=== PATIENT | female | born 1940 | race Caucasian/White ===

== ENCOUNTER → 2017-11-23 | Outpatient (CLI) | payer MEDICARE, OTHER ==
[~2017-11-23] MED LIST: ACET-1600 PO; ALCA3DRO EACHEYE; ASPI-515 PO; CA C1TAB39 PO; CHOL200024 PO; CHOL500045 PO; GABA-826 PO; GABA600T2 PO; HYDR-3307 PO; HYDR12.58 PO; HYDR25TA6 PO; KRIL1CAP PO; LACT1CAP35 PO; LATA2.5D3 EACHEYE; LISI-170 PO; MELA10TA PO; POTA99TA24 PO; PRAV40TA2 PO; PREG75CA PO; SENEKOT PO; SENN1TAB68 PO; SENN8.6T98 PO; TETR15DR16 EACHEYE; TRAM50TA2 PO; TURM500C4 PO; VITA1TAB19 PO; [UNRECOGNIZED DRUG - OTHER] PO; [UNRECOGNIZED DRUG - OTHER] PO
[2017-11-23 13:20] LABS: ANION GAP 10 mmol/L (5-15); CALCIUM 10.6 mg/dL (8.5-10.1); CHLORIDE 94 mmol/L (98-107)
[2017-11-23 13:24] LABS: ALANINE AMINOTRANSFERASE 25 U/L (12-78); ALKALINE PHOSPHATASE 73 U/L (45-117); BILIRUBIN,TOTAL 0.6 mg/dL (0.2-1.0); CREATININE 1.27 mg/dL (0.55-1.02); TOTAL PROTEIN 8.4 g/dL (6.4-8.2)
== END | disposition home or self-care (01) ==
LOC: STAR 11:46
PROVIDERS: ATTEND Thoracic Surgery (Cardiothoracic Vascular Surgery)
DX: Z01.818 Encounter for other preprocedural examination (principal); K40.90 Unilateral inguinal hernia, without obstruction or gangrene, not specified as recurrent
CPT/HCPCS: 36415; 80053; 93005

== ENCOUNTER 2017-11-27 06:49 | Day surgery (SDC) | payer MEDICARE, OTHER ==
[~2017-11-27] VITALS: Ht 160 cm; Wt 79.3 kg
[2017-11-27] MEDS ORDERED: BUPIVACAINE/PF-EPI 0.5% 1:200K ONE (07:02)
[2017-11-27] MEDS ORDERED: LACTATED RINGERS 1,000 ML IV SCH ×2 (07:14→11:21)
[2017-11-27 07:54] VITALS: BP 97/67
[2017-11-27] MEDS ORDERED: LISI-170 PO (08:00)
[2017-11-27] MEDS ORDERED: FENTANYL PF 250 MCG/5ML ONE (08:23)
[2017-11-27 08:43] LABS: ANION GAP 9 mmol/L (5-15); CALCIUM 8.7 mg/dL (8.5-10.1); CHLORIDE 98 mmol/L (98-107); CREATININE 1.13 mg/dL (0.55-1.02)
[2017-11-27 08:48] LABS: BASOPHILS # (AUTO) 0.02 x10^3/uL (0-0.1); BASOPHILS % (AUTO) 0 % (0-1); EOSINOPHILS # (AUTO) 0.09 x10^3/uL (0-0.4); EOSINOPHILS % (AUTO) 2 % (1-7); LYMPHOCYTES # (AUTO) 0.98 x10^3/uL (1-3.4); LYMPHOCYTES % (AUTO) 17 % (22-44); MD NO; MEAN CORPUSCULAR HEMOGLOBIN 33.3 pg (27.0-34.8); MEAN CORPUSCULAR VOLUME 97.8 fL (80-100); MEAN PLATELET VOLUME 8.3 fL (7.4-10.4); MONOCYTES # (AUTO) 0.44 x10^3/uL (0.2-0.8); MONOCYTES % (AUTO) 8 % (2-9); NEUTROPHILS # (AUTO) 4.32 x10^3/uL (1.8-6.8); NEUTROPHILS % (AUTO) 74 % (42-75); PLATELET COUNT 250 x10^3/uL (130-400); RED BLOOD COUNT 3.83 x10^6/uL (3.82-5.3); RED CELL DISTRIBUTION WIDTH 14.3 % (9.6-15.2)
[2017-11-27] MEDS ORDERED: DEXAMETHASONE 4 MG/ML, 1ML ONE (08:59)
[2017-11-27] MEDS ORDERED: CEFAZOLIN 1,000 MG ONE (08:59)
[2017-11-27] MEDS ORDERED: ROCURONIUM 10 MG/ML,10ML ONE (08:59)
[2017-11-27] MEDS ORDERED: PROPOFOL 10 MG/ML, 20ML ONE (08:59)
[2017-11-27] MEDS ORDERED: BUPIVACAINE/PF-EPI 0.5% 1:200K INFIL ONE (09:27)
[2017-11-27] MEDS ORDERED: HYDROmorphone 1 MG/ML, 1ML IV PRN (09:30)
[2017-11-27] MEDS ORDERED: ALBUTEROL SULFATE 2.5 MG/3 ML NPPB PRN (09:30)
[2017-11-27] MEDS ORDERED: LORazepam 2 MG/ML, 1ML IVPush PRN (09:30)
[2017-11-27] MEDS ORDERED: LABETALOL 5MG/ML, 20ML IV PRN (09:30)
[2017-11-27] MEDS ORDERED: OXYcodone 5 MG/5 ML ORAL.SOL UDC PO PRN (09:30)
[2017-11-27] MEDS ORDERED: ACETAMINOPHEN 325 MG TABLET PO PRN (09:30)
[2017-11-27] MEDS ORDERED: hydrALAzine 20 MG/ML, 1ML IV PRN (09:30)
[2017-11-27] MEDS ORDERED: OXYcodone 5 MG/5 ML ORAL.SOL UDC ONE (11:27)
[2017-11-27] MEDS ORDERED: FENTANYL PF 100 MCG/2ML ONE (11:27)
[2017-11-27] MEDS ORDERED: ACETAMINOPHEN 650 MG/20.3 ML UDC ONE (11:27)
[2017-11-27] MEDS ORDERED: ONDANSETRON 2MG/ML, 2ML IVPush PRN (11:30)
[2017-11-27] MEDS ORDERED: HYDROmorphone 2 MG/ML, 1ML IVPush PRN (11:30)
[2017-11-27] MEDS: FENTANYL PF 100 MCG/2ML IV PRN ×2 (11:41→11:55)
[2017-11-27] MEDS: HYDROcodone/APAP 5/325 TABLET PO PRN ×2 (16:17→16:40)
== END 2017-11-27 18:20 | disposition home or self-care (01) ==
LOC: OUT 06:49
PROVIDERS: ATTEND Thoracic Surgery (Cardiothoracic Vascular Surgery)
DX: K40.90 Unilateral inguinal hernia, without obstruction or gangrene, not specified as recurrent (principal); K43.6 Other and unspecified ventral hernia with obstruction, without gangrene; I10 Essential (primary) hypertension; E78.5 Hyperlipidemia, unspecified; Z87.39 Personal history of other diseases of the musculoskeletal system and connective tissue; Z79.82 Long term (current) use of aspirin
CPT/HCPCS: 36415; 49650; 49653; 80048; 85025; C1781; J0690; J1100; J2704; J3010; J7120; S2900

== ENCOUNTER 2018-12-28 12:06 | Emergency (ER) | payer MEDICARE, OTHER ==
[~2018-12-28] VITALS: Ht 160 cm; Wt 78.0 kg
[~2018-12-28 12:06] MED LIST changes: -GABA600T2 PO; +GABA600T7 PO; -HYDR-3307 PO; +HYDR-36 PO; -HYDR12.58 PO; +HYDROCHLOROTH12.5 MG PO; -KRIL1CAP PO; +KRIL1CAP7 PO
[2018-12-28] MEDS ORDERED: DILTIAZEM 5 MG/ML, 5ML IV ONE (12:30)
[2018-12-28] MEDS ORDERED: SODIUM CHLORIDE FLUSH 10ML SYR IVF ONE (12:30)
[2018-12-28 12:43] LABS: BASOPHILS # (AUTO) 0.03 x10^3/uL (0-0.1); BASOPHILS % (AUTO) 0 % (0-1); EOSINOPHILS # (AUTO) 0.09 x10^3/uL (0-0.4); EOSINOPHILS % (AUTO) 1 % (1-7); LYMPHOCYTES # (AUTO) 0.85 x10^3/uL (1-3.4); LYMPHOCYTES % (AUTO) 9 % (22-44); MD NO; MEAN CORPUSCULAR HGB CONC 33.2 g/dL (32.4-35.8); MEAN CORPUSCULAR VOLUME 102.4 fL (80-100); MEAN PLATELET VOLUME 8.3 fL (7.4-10.4); MONOCYTES % (AUTO) 4 % (2-9); NEUTROPHILS # (AUTO) 8.27 x10^3/uL (1.8-6.8); NEUTROPHILS % (AUTO) 86 % (42-75); PLATELET COUNT 213 x10^3/uL (130-400); RED BLOOD COUNT 3.58 x10^6/uL (3.82-5.3)
[2018-12-28 12:46] LABS: ALBUMIN 3.1 g/dL (3.4-5.0); ANION GAP 3 mmol/L (5-15); CALCIUM 8.6 mg/dL (8.5-10.1); CHLORIDE 109 mmol/L (98-107)
[2018-12-28 12:50] LABS: ALANINE AMINOTRANSFERASE 114 U/L (12-78); ALKALINE PHOSPHATASE 85 U/L (45-117); BILIRUBIN,TOTAL 0.3 mg/dL (0.2-1.0); CREATININE 1.25 mg/dL (0.55-1.02); TOTAL PROTEIN 6.7 g/dL (6.4-8.2)
--- NOTE | 2018-12-28 12:57 | NUR ---
REPORT GIVEN TO LOYDA
[2018-12-28] MEDS ORDERED: DILTIAZEM 5 MG/ML, 5ML ONE (12:58)
--- NOTE | 2018-12-28 12:58 | NUR ---
MEDICATED PER EMAR WITH ALMOST IMMEDIATE RESULTS-REPEAT ECG OBTAINED-SHOWN TO PROVIDER. pRE-MEDICATION: 111, 117/81, pOST-MEDICATION: 70, 103/62
[2018-12-28] MEDS ORDERED: ROSU40TA PO (13:37)
--- NOTE | 2018-12-28 13:50 | NUR ---
remains in NSR. ER provider to consult cardiology then probable d/c home with or without rate control and/or daoc rx(s)
[2018-12-28 14:10] VITALS: BP 111/58
--- NOTE | 2018-12-28 14:30 | NUR ---
With f/u ER Provider still awaiting return call from cardiology. Deflector Operator re-paged
--- NOTE | 2018-12-28 14:53 | NUR ---
ASSIST RN: D/C INSTRUCTIONS & F/U APPT'S RV'WD WITH PT & SON, THEY VERBALIZE UNDERSTANDING. INSTRUCTED PT TO RETURN TO ED FOR ANY CONCERNING SYMPTOMS. ASSISTED PT OUT OF ED VIA WC WITH SON.
== END 2018-12-28 14:56 | disposition home or self-care (01) ==
LOC: ED 14:50
DX: I48.0 Paroxysmal atrial fibrillation (principal); I10 Essential (primary) hypertension
CPT/HCPCS: 36415; 71045; 80053; 85025; 93005; 96374; 99284

== ENCOUNTER 2019-01-20 04:38 | Inpatient (IN) | payer MEDICARE, OTHER ==
[~2019-01-20] VITALS: Ht 160 cm; Wt 84.0 kg
[~2019-01-20 04:38] MED LIST changes: +ROSU40TA PO
--- NOTE | 2019-01-20 04:51 | NUR ---
THE EKG WAS COMPLETED IN TRIAGE AND THE ERP REVIEWED, ERP INTO THE PT ROOM.
[2019-01-20] MEDS ORDERED: DILTIAZEM 5 MG/ML, 5ML ONE (04:55)
[2019-01-20] MEDS ORDERED: DILTIAZEM 5 MG/ML, 5ML IV ONE (05:00)
[2019-01-20] MEDS ORDERED: ASPIRIN 81 MG TABLET CHEW PO ONE (05:00)
[2019-01-20] MEDS ORDERED: ASPIRIN 81 MG TABLET CHEW ONE (05:28)
[2019-01-20 05:37] LABS: BASOPHILS # (AUTO) 0.04 x10^3/uL (0-0.1); BASOPHILS % (AUTO) 1 % (0-1); EOSINOPHILS # (AUTO) 0.09 x10^3/uL (0-0.4); EOSINOPHILS % (AUTO) 1 % (1-7); LYMPHOCYTES # (AUTO) 1.44 x10^3/uL (1-3.4); LYMPHOCYTES % (AUTO) 18 % (22-44); MD NO; MEAN CORPUSCULAR HEMOGLOBIN 34.5 pg (27.0-34.8); MEAN CORPUSCULAR HGB CONC 32.8 g/dL (32.4-35.8); MEAN CORPUSCULAR VOLUME 105.3 fL (80-100); MEAN PLATELET VOLUME 9.9 fL (7.4-10.4); MONOCYTES # (AUTO) 0.49 x10^3/uL (0.2-0.8); MONOCYTES % (AUTO) 6 % (2-9); NEUTROPHILS # (AUTO) 6.15 x10^3/uL (1.8-6.8); NEUTROPHILS % (AUTO) 75 % (42-75); PLATELET COUNT 238 x10^3/uL (130-400); RED BLOOD COUNT 4.08 x10^6/uL (3.82-5.3); RED CELL DISTRIBUTION WIDTH 13.6 % (9.6-15.2)
[2019-01-20 05:43] LABS: ALBUMIN 3.8 g/dL (3.4-5.0); ANION GAP 6 mmol/L (5-15); CALCIUM 9.7 mg/dL (8.5-10.1); CHLORIDE 105 mmol/L (98-107); CREATININE 1.36 mg/dL (0.55-1.02)
--- NOTE | 2019-01-20 06:07 | NUR ---
PT TO RESTROOM VIA W/C. STATES INTERMITTENT REDDY & NAUSEA. APPEARS ASSOCIATED C ELEVATED HR. STATES RECENT DX OF A FIB (2WEEKS AGO).
[2019-01-20] MEDS ORDERED: DILTIAZEM 125 MG in SODIUM CHLORIDE 0.9% 100 ML IV SCH ×3 (06:36→10:00)
[2019-01-20] MEDS ORDERED: PROMETHAZINE 25 MG/ML, 1ML ONE (06:37)
--- NOTE | 2019-01-20 06:42 | NUR ---
PT AWARE OF PLAN TO ADMIT & GTT. FAMILY AT BS. REPEAT EKG COMPLETED.
--- NOTE | 2019-01-20 06:42 | NUR ---
PT HR FLUCTUATES BETWEEN 80S-120S. A FIB ON MONITOR.
[2019-01-20] MEDS ORDERED: PROMETHAZINE 25 MG/ML, 1ML IM ONE (07:00)
--- NOTE | 2019-01-20 08:11 | NUR ---
REPORT CALLED TO THE FLOOR BETTY
[2019-01-20 08:44] VITALS: BP 130/79
[2019-01-20] MEDS ORDERED: ONDANSETRON 2MG/ML, 2ML IVPush PRN (10:00)
[2019-01-20] MEDS ORDERED: NITROGLYCERIN 0.4 MG/SPRAY SL PRN (10:00)
[2019-01-20] MEDS ORDERED: NITROGLYCERIN 0.4 MG BOTTLE (25 TABS) SL PRN (10:00)
[2019-01-20] MEDS ORDERED: ACETAMINOPHEN 325 MG TABLET PO PRN (10:00)
[2019-01-20] MEDS ORDERED: POLYETHYLENE GLYCOL 17 GM PACKET PO PRN (10:00)
[2019-01-20] MEDS ORDERED: BISACODYL 10 MG SUPP PR PRN (10:00)
[2019-01-20] MEDS ORDERED: DOCUSATE 100 MG CAPSULE PO PRN (10:00)
[2019-01-20] MEDS: APIXABAN 5 MG TABLET PO SCH ×2 (10:07→21:35)
[2019-01-20 12:49] VITALS: BP 128/88
[2019-01-20] MEDS: DILTIAZEM 30 MG TABLET PO SCH ×3 (13:06→21:36)
[2019-01-20 13:51] LABS: TROPONIN I < 0.015 ng/mL (0.000-0.045)
[2019-01-20] MEDS: GABAPENTIN 300 MG CAPSULE PO SCH ×2 (16:01→21:35)
[2019-01-20] MEDS: DILTIAZEM 125 MG in SODIUM CHLORIDE 0.9% 100 ML IV SCH (16:33)
[2019-01-20 18:05] VITALS: BP 148/97
[2019-01-20] MEDS ORDERED: PROMETHAZINE 25MG TABLET PO PRN (18:30)
[2019-01-20 19:52] LABS: TROPONIN I < 0.015 ng/mL (0.000-0.045)
[2019-01-20 20:01] VITALS: BP 135/82
[2019-01-20] MEDS ORDERED: TEMPLATE NON-FORMULARY MED. (Rosuvastatin Calcium** (Crestor**) 40 MG) PO SCH (21:00)
[2019-01-21 02:33] VITALS: BP 109/74
[2019-01-21 06:00] LABS: BASOPHILS # (AUTO) 0.03 x10^3/uL (0-0.1); BASOPHILS % (AUTO) 0 % (0-1); EOSINOPHILS # (AUTO) 0.15 x10^3/uL (0-0.4); EOSINOPHILS % (AUTO) 2 % (1-7); LYMPHOCYTES # (AUTO) 1.15 x10^3/uL (1-3.4); LYMPHOCYTES % (AUTO) 17 % (22-44); MD NO; MEAN CORPUSCULAR HEMOGLOBIN 34.7 pg (27.0-34.8); MEAN CORPUSCULAR HGB CONC 32.9 g/dL (32.4-35.8); MEAN CORPUSCULAR VOLUME 105.5 fL (80-100); MEAN PLATELET VOLUME 9.4 fL (7.4-10.4); MONOCYTES # (AUTO) 0.54 x10^3/uL (0.2-0.8); MONOCYTES % (AUTO) 8 % (2-9); NEUTROPHILS # (AUTO) 4.86 x10^3/uL (1.8-6.8); NEUTROPHILS % (AUTO) 72 % (42-75); PLATELET COUNT 200 x10^3/uL (130-400); RED BLOOD COUNT 3.69 x10^6/uL (3.82-5.3); RED CELL DISTRIBUTION WIDTH 13.6 % (9.6-15.2)
[2019-01-21] MEDS: DILTIAZEM 30 MG TABLET PO SCH (06:06)
[2019-01-21 06:11] LABS: ALBUMIN 3.4 g/dL (3.4-5.0); ANION GAP 5 mmol/L (5-15); CALCIUM 8.9 mg/dL (8.5-10.1); CHLORIDE 110 mmol/L (98-107)
[2019-01-21] MEDS: DILTIAZEM 125 MG in SODIUM CHLORIDE 0.9% 100 ML IV SCH (06:32)
[2019-01-21] MEDS ORDERED: DILTIAZEM 125 MG in SODIUM CHLORIDE 0.9% 100 ML IV SCH (06:36)
[2019-01-21 06:37] LABS: ALANINE AMINOTRANSFERASE 167 U/L (12-78); ALKALINE PHOSPHATASE 147 U/L (45-117); CHOLESTEROL, TOTAL 81 mg/dL (140-239); CREATININE 1.15 mg/dL (0.55-1.02); HDL CHOL % 49 % (28-40); HDL CHOLESTEROL (DIRECT) 40 mg/dL (40-60); LDL CHOLESTEROL,CALCULATED 22 mg/dL (54-169); LDL/HDL RATIO 0.6 (0.5-3.0); TOTAL PROTEIN 7.1 g/dL (6.4-8.2); TRIGLYCERIDES 96 mg/dL (50-200); VLDL CHOLESTEROL 19 mg/dL (0-25)
[2019-01-21 07:27] VITALS: BP 115/87
[2019-01-21] MEDS: GABAPENTIN 300 MG CAPSULE PO SCH ×2 (08:43→16:31)
[2019-01-21] MEDS: APIXABAN 5 MG TABLET PO SCH (08:43)
[2019-01-21] MEDS ORDERED: MAGNESIUM OXIDE 400 MG TABLET PO SCH (09:00)
[2019-01-21] MEDS ORDERED: ASPIRIN 81 MG TABLET EC PO SCH (09:00)
[2019-01-21] MEDS ORDERED: POTASSIUM CHLORIDE 20 MEQ TAB.ER.PRT PO SCH (09:00)
[2019-01-21] MEDS ORDERED: DILTIAZEM 120 MG CAP.ER.24H PO SCH (09:00)
[2019-01-21] MEDS ORDERED: LATANOPROST OPHTH 0.005%, 2.5ML EACHEYE SCH (09:00)
[2019-01-21] MEDS ORDERED: PROPOFOL 10 MG/ML, 20ML ONE (12:55)
[2019-01-21 14:09] VITALS: BP 129/88
[2019-01-21] MEDS ORDERED: DILT120C48 PO (15:23)
[2019-01-21] MEDS ORDERED: APIX5TAB PO (15:29)
[2019-01-21] MEDS ORDERED: METO-93 PO (17:11)
== END 2019-01-21 16:50 | disposition home or self-care (01) | DRG 308 ==
LOC: ED 07:06 → EDIP 07:10 → 5SO 08:17 → DCLOUNGE 01-21 16:32
PROVIDERS: ADMIT Internal Medicine; ATTEND Family Medicine
PROC: 5A2204Z Restoration of Cardiac Rhythm, Single (ICD-10-PCS; principal; 2019-01-21 13:30)
DX: I48.91 Unspecified atrial fibrillation (principal); I50.33 Acute on chronic diastolic (congestive) heart failure; D68.59 Other primary thrombophilia; I11.0 Hypertensive heart disease with heart failure; D75.89 Other specified diseases of blood and blood-forming organs; I08.3 Combined rheumatic disorders of mitral, aortic and tricuspid valves; N28.9 Disorder of kidney and ureter, unspecified; H40.9 Unspecified glaucoma; E78.5 Hyperlipidemia, unspecified; M19.90 Unspecified osteoarthritis, unspecified site; Z96.652 Presence of left artificial knee joint; Z79.01 Long term (current) use of anticoagulants; Z91.048 Other nonmedicinal substance allergy status; Z82.49 Family history of ischemic heart disease and other diseases of the circulatory system; Z80.3 Family history of malignant neoplasm of breast; Z87.891 Personal history of nicotine dependence; Z79.899 Other long term (current) drug therapy
CPT/HCPCS: 36415; 71045; 80048; 80053; 80061; 82040; 82607; 83735; 83880; 84100; 84443; 84484; 85025; 92960; 93005; 93306; 96372; 96374; G0378; J2550; J2704; Q0169

== ENCOUNTER → 2019-02-11 | Outpatient (CLI) | payer MEDICARE, OTHER ==
[~2019-02-11] MED LIST changes: +APIX5TAB PO; +DILT120C48 PO; +METO-93 PO; +REGADENOSON 0.4 MG/5 ML SYRINGE ONE
== END | disposition home or self-care (01) ==
LOC: CFH 07:48
PROVIDERS: ATTEND Family Medicine
DX: I25.89 Other forms of chronic ischemic heart disease (principal); I10 Essential (primary) hypertension; I48.91 Unspecified atrial fibrillation
CPT/HCPCS: 78452; 93017; A9502; J2785

== ENCOUNTER 2020-11-15 18:41 | Inpatient (IN) | payer MEDICARE, OTHER ==
[~2020-11-15] VITALS: Ht 161.3 cm; Wt 73.0 kg
[~2020-11-15 18:41] MED LIST changes: +AMIO200T42 PO; -ASPI-515 PO; +ASPI-963 PO; +CEFD300C37 PO; +ESCI5TAB8 PO; +HYDR-3248 PO; +HYDR-3343 PO; -HYDR-36 PO; +L.AC1CAP6 PO; -LATA2.5D3 EACHEYE; +LATA2.5D4 EACHEYE; +METO25TA35 PO; +METR-90 PO; -REGADENOSON 0.4 MG/5 ML SYRINGE ONE
--- NOTE | 2020-11-15 18:44 | NUR ---
PT BIB EMS FOR DIZZINESS. PT STATES SHE WAS FEELING DIZZY ALL DAY. PER SON "SHE VOMITTED EARLIER AND ALMOST FELL TO THE GROUND BUT I CAUGHT HER AND LOWERED HER DOWN AND CALLED 911". EMS ARRIVED AND SHE WAS HYPOTENSIVE 61/50. BLOOD SUGAR 196 PER EMS. 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 PT LETHARGIC. DIAPHORETIC. MD NOTIFIED. EKG COMPLETE. CONNECTED TO ALL MONITORING EQUIPMENT
--- NOTE | 2020-11-15 18:58 | NUR ---
ASSUMED CARE OF PATIENT. REPORT GIVEN FROM KAREN RAHMAN. DR HECTOR HAS SEEN PATIENT.
[2020-11-15] MEDS ORDERED: ONDANSETRON 2MG/ML, 2ML IVPush ONE (19:00)
[2020-11-15] MEDS ORDERED: SODIUM CHLORIDE FLUSH 10ML SYR IVF ONE (19:00)
[2020-11-15] MEDS ORDERED: SODIUM CHLORIDE 0.9% 1,000ML IVBOLUS ONE ×3 (19:00→20:00)
[2020-11-15] MEDS ORDERED: SODIUM CHLORIDE 0.9% 1,000 ML IV ONE (19:00)
[2020-11-15 19:21] LABS: BASOPHILS % (AUTO) 0 % (0-1); EOSINOPHILS % (AUTO) 1 % (1-7); LYMPHOCYTES % (AUTO) 10 % (22-44); MEAN CORPUSCULAR HEMOGLOBIN 33.1 pg (27.0-34.8); MEAN CORPUSCULAR HGB CONC 32.4 g/dL (32.4-35.8); MEAN PLATELET VOLUME 8.6 fL (7.4-10.4); MONOCYTES % (AUTO) 4 % (2-9); NEUTROPHILS % (AUTO) 86 % (42-75); PLATELET COUNT 310 x10^3/uL (130-400); RED BLOOD COUNT 4.91 x10^6/uL (3.82-5.3); RED CELL DISTRIBUTION WIDTH 14.5 % (9.6-15.2)
--- NOTE | 2020-11-15 19:29 | NUR ---
DR HECTOR AWARE OF VS
[2020-11-15 19:34] LABS: ALANINE AMINOTRANSFERASE 33 U/L (12-78); ALBUMIN 2.8 g/dL (3.4-5.0); ANION GAP 11 mmol/L (5-15); CALCIUM 9.2 mg/dL (8.5-10.1); CHLORIDE 107 mmol/L (98-107); CREATININE 2.31 mg/dL (0.55-1.02)
[2020-11-15 19:39] LABS: ALKALINE PHOSPHATASE 145 U/L (45-117); BILIRUBIN,TOTAL 0.6 mg/dL (0.2-1.0); TOTAL PROTEIN 7.6 g/dL (6.4-8.2); TROPONIN I < 0.015 ng/mL (0.000-0.045)
[2020-11-15] MEDS: NOREPINEPHRINE 8 MG in SODIUM CHLORIDE 0.9% 242 ML IV PRN ×5 (19:48→20:43)
[2020-11-15 20:09] LABS: INTERNATIONAL NORMALIZED RATIO 1.08 (0.93-1.1); PROTHROMBIN TIME 11.5 Seconds (9.6-11.5)
[2020-11-15] MEDS ORDERED: ALEN70TA77 PO (20:22)
[2020-11-15] MEDS ORDERED: OXYB5TAB10 PO (20:22)
[2020-11-15] MEDS ORDERED: GABA-826 PO (20:22)
[2020-11-15] MEDS ORDERED: ICOS1CAP PO (20:22)
[2020-11-15] MEDS ORDERED: UBID1CAP43 PO (20:22)
[2020-11-15 20:35] LABS: CLOSTRIDIUM DIFFICILE ANTIGEN NEGATIVE; CLOSTRIDIUM DIFFICILE TOXIN NEGATIVE (Negative)
--- NOTE | 2020-11-15 20:45 | NUR ---
PT RESTING IN ROOM. SON AT BEDSIDE. VS STABLE. LEVO RUNNING THOUGH PERIPHEREL IV, OKAYED BY DR HECTOR.
--- NOTE | 2020-11-15 21:00 | NUR ---
CLEAN AND CHANGED LINENS AFTER PATIENT HAD A REDDNESS BROWN LIQUID BM, PATIENT PROVIDED WARM BLANKETS, YELLOW GOWN, AND BEARHUGGER. CONTINUING TO MONITOR BP.
--- NOTE | 2020-11-15 21:03 | NUR ---
PT DOES NOT WANT ZOFRAN AT THIS TIME.
--- NOTE | 2020-11-15 21:33 | NUR ---
DR HECTOR HAS UPDATED PATIENT. SEPSIS PROTOCOL DISCUSSED WITH DR HECTOR.
--- NOTE | 2020-11-15 21:47 | NUR ---
LAB AWARE PT NEEDS BLOOD CULTURES
[2020-11-15] MEDS ORDERED: PIPERACILLIN/TAZO 3.375 GM in DEXTROSE 5% 50 ML IVPB ONE (22:00)
--- NOTE | 2020-11-15 22:06 | NUR ---
LAB IN ROOM
--- NOTE | 2020-11-15 22:18 | NUR ---
both blood cultures drawn before abx given
--- NOTE | 2020-11-15 22:41 | NUR ---
REPORT RECIEVED FROM ALFONSO JONES. ASSUMED CARE.
--- NOTE | 2020-11-15 22:47 | NUR ---
BEDSIDE REPORT GIVEN TO KAREN RAHMAN. DR HECTOR IN ROOM. PT READY FOR CENTRAL LINE. CONSENT SIGNED. PROCEDURE EXPLAINED. PT AGREES.
[2020-11-15 23:05] LABS: MICROSCOPIC INDICATED
--- NOTE | 2020-11-15 23:26 | NUR ---
PT CLEANED UP. HOSPITALIST BEDSIDE.
[2020-11-16] MEDS ORDERED: NOREPINEPHRINE 8 MG in SODIUM CHLORIDE 0.9% 242 ML IV PRN
[2020-11-16] MEDS ORDERED: PHARMACY MAY ADJ FOR RENAL FX MC PRN
[2020-11-16] MEDS ORDERED: ONDANSETRON 2MG/ML, 2ML IVPB PRN
[2020-11-16] MEDS ORDERED: ACETAMINOPHEN 650 MG SUPP PR PRN
[2020-11-16] MEDS ORDERED: FAMOTIDINE 20 MG/2 ML IV SCH
--- NOTE | 2020-11-16 00:01 | NUR ---
PT TAKEN TO CT AND BACK. NAD. X RAY IN ROOM FOR CHEST X RAY
[2020-11-16] MEDS: LACTATED RINGERS 1,000 ML IV SCH ×2 (00:12→01:34)
[2020-11-16] MEDS: PIPERACILLIN/TAZO 4.5 GM in DEXTROSE 5% 100 ML IV SCH ×2 (00:13→09:21)
--- NOTE | 2020-11-16 00:20 | NUR ---
AWAITING X RAY READ TO USE CENTRAL LINE
--- NOTE | 2020-11-16 01:15 | NUR ---
PT TRANSFERED TO HOSPITAL BED
[2020-11-16] MEDS ORDERED: FAMOTIDINE 20 MG/2 ML ONE (01:19)
--- NOTE | 2020-11-16 01:59 | NUR ---
PT RESTING IN HOSPITAL BED. NAD
[2020-11-16 02:03] LABS: OCCULT BLOOD NEGATIVE (NEGATIVE)
[2020-11-16 02:08] LABS: HCT (SEDRATE) 42.5 % (34.6-47.8)
--- NOTE | 2020-11-16 04:12 | NUR ---
PT CLEANED. [facility] CARE PERFORMED.
--- NOTE | 2020-11-16 04:20 | NUR ---
REPORT GIVEN TO KAREN CASTELLON
--- NOTE | 2020-11-16 04:20 | NUR ---
RECEIVED REPORT FROM JOSIAH JONES. PT SLEEPING AT THIS TIME, NO ACUTE DISTRESS. IV SITE INTACT. PTS LEVOPHED GTT PLACED ON PAUSE FOR NOW, TO SEE HOW THE BP DOES. CURRENT BP IS 145/63.
[2020-11-16 05:30] LABS: MEAN CORPUSCULAR HGB CONC 32.8 g/dL (32.4-35.8); MEAN PLATELET VOLUME 8.3 fL (7.4-10.4); PLATELET COUNT 185 x10^3/uL (130-400); RED BLOOD COUNT 4.29 x10^6/uL (3.82-5.3); RED CELL DISTRIBUTION WIDTH 14.6 % (9.6-15.2)
[2020-11-16 05:36] LABS: CHLORIDE 116 mmol/L (98-107)
[2020-11-16 05:42] LABS: ALANINE AMINOTRANSFERASE 26 U/L (12-78); ALBUMIN 2.4 g/dL (3.4-5.0); ALKALINE PHOSPHATASE 93 U/L (45-117); ANION GAP 13 mmol/L (5-15); BILIRUBIN,TOTAL 0.7 mg/dL (0.2-1.0); CALCIUM 8.1 mg/dL (8.5-10.1); CREATININE 2.28 mg/dL (0.55-1.02); TOTAL PROTEIN 6.6 g/dL (6.4-8.2)
--- NOTE | 2020-11-16 06:16 | NUR ---
PT SLEEPING WELL, GOOD AIRWAY AND GOOD AERATION. PT LINEN CHANGED, PT HAD ANOTHER LOOSE WATERY BROWN STOOL. SMALLER IN SIZE, BUT REMAINS WITH SOME BLOOD TINGE. PT TOLERATED WELL AND CHUCKS PADS PLACED AND PT CLEANED UP. PT REMAINS OFF LEVOPHED DRIP SINCE LAST STOPPED.
[2020-11-16 06:46] LABS: BAND#(MANUAL) 2.16 x10^3/uL; BANDS%(MANUAL) 10 % (0-7); LYMPH#(MANUAL) 0.43 x10^3/uL (1-3.4); LYMPHS% (MANUAL) 2 % (22-44); MONOS#(MANUAL) 1.08 x10^3/uL (0.3-2.7); MONOS% (MANUAL) 5 % (2-9); SEGS% (MANUAL) 83 % (42-75)
[2020-11-16 06:48] LABS: <PLATELET ESTIMATE> ADEQUATE; <PLT MORPHOLOGY> NORMAL PLT MORPH
--- NOTE | 2020-11-16 06:58 | NUR ---
SBAR RPT REC'D AND ASSUMED PT CARE. DR BO AT BEDSIDE, PT ASSESSMENT, LAB RESULTS REVIEWED AND QUESTIONS ANSWERED. NEW ORDERS REC'D.
[2020-11-16] MEDS: INSULIN LISPRO 100 UNITS/ML, PEN SQ-INSULIN SCH ×4 (07:00→20:26)
[2020-11-16 07:14] LABS: FIO2 ROOM AIR %
[2020-11-16] MEDS ORDERED: SODIUM BICARBONATE 8.4% 150 MEQ in DEXTROSE 5% 1,000 ML IV SCH (07:30)
--- NOTE | 2020-11-16 07:32 | NUR ---
ORAL CARE COMPLETED, LIP MOISTURIZER APPLIED, PT TOLLERATED ICE CHIPS W/O DIFFICULTY. SIPS OF H2O PROVIDED. 02 2L NC PLACED 2/2 ABG WITH PO2 = 66 LUNG SOUNDS CLR T/O DECREASED LA BASES
--- NOTE | 2020-11-16 08:03 | NUR ---
Pt cleaned of small amt of liquid brown stool. Sample sent to lab. pt repositioned to left lateral side. call light w/i reach, vss
--- NOTE | 2020-11-16 08:29 | NUR ---
REPORT FROM MYRIAM JONES.L PT SLEEPING ON HOSPITAL BED, CONNECTED TO ALL MONITORING, VSS, NADN. BICARB DRIP STARTED PER EMAR.
--- NOTE | 2020-11-16 08:43 | NUR ---
MED IJEOMA FROM PHARMACY.
[2020-11-16 08:47] LABS: OCCULT BLOOD POSITIVE (NEGATIVE)
--- NOTE | 2020-11-16 09:19 | NUR ---
PTS DAUGHTER TRIXIE UPDATED ON PT STATUS.
[2020-11-16 11:52] VITALS: BP 136/81
[2020-11-16] MEDS ORDERED: HEPARIN 5,000 UNITS/ML, 1ML SQ SCH (12:30)
[2020-11-16 12:43] VITALS: BP 142/79
[2020-11-16 12:50] LABS: ANION GAP 8 mmol/L (5-15); CALCIUM 7.8 mg/dL (8.5-10.1); CHLORIDE 113 mmol/L (98-107); CREATININE 2.09 mg/dL (0.55-1.02)
[2020-11-16 13:45] VITALS: BP 131/78
[2020-11-16] MEDS: CEFTRIAXONE 2 GM in DEXTROSE 5% 50 ML IVPB SCH (14:36)
[2020-11-16] MEDS ORDERED: PIPERACILLIN/TAZO(ZOSYN) 2.25 GM in NS 50 ML IVPB SCH (15:00)
[2020-11-16] MEDS: METRONIDAZOLE PMX 500MG/100ML 100 ML IV SCH ×2 (15:13→21:12)
[2020-11-16] MEDS: ACETAMINOPHEN 650 MG/20.3 ML UDC PO PRN (17:47)
[2020-11-16 19:11] VITALS: BP 115/64
[2020-11-16] MEDS: ATORVASTATIN 80 MG TABLET PO SCH (21:04)
[2020-11-16] MEDS: APIXABAN 5 MG TABLET PO SCH (21:04)
[2020-11-16] MEDS: AMIODARONE 200 MG TABLET PO SCH (21:04)
[2020-11-16] MEDS: OXYBUTYNIN CHLORIDE 5 MG TABLET PO SCH (21:04)
[2020-11-16] MEDS: FAMOTIDINE 20 MG/2 ML IV SCH (21:16)
[2020-11-17 00:21] VITALS: BP 136/78
[2020-11-17 01:39] LABS: OCCULT BLOOD POSITIVE (NEGATIVE)
[2020-11-17] MEDS ORDERED: LOPERAMIDE 2 MG CAPSULE PO ONE (03:00)
[2020-11-17 04:33] LABS: MEAN CORPUSCULAR HEMOGLOBIN 34.5 pg (27.0-34.8); MEAN CORPUSCULAR HGB CONC 34.4 g/dL (32.4-35.8); MEAN PLATELET VOLUME 8.1 fL (7.4-10.4); PLATELET COUNT 149 x10^3/uL (130-400); RED BLOOD COUNT 3.35 x10^6/uL (3.82-5.3); RED CELL DISTRIBUTION WIDTH 14.3 % (9.6-15.2)
[2020-11-17 04:39] LABS: ANION GAP 5 mmol/L (5-15); CALCIUM 7.4 mg/dL (8.5-10.1); CHLORIDE 115 mmol/L (98-107); CREATININE 1.42 mg/dL (0.55-1.02)
[2020-11-17] MEDS: METRONIDAZOLE PMX 500MG/100ML 100 ML IV SCH ×3 (05:05→22:30)
[2020-11-17 05:59] LABS: BANDS%(MANUAL) 11 % (0-7); LYMPH#(MANUAL) 0.54 x10^3/uL (1-3.4); LYMPHS% (MANUAL) 4 % (22-44); MONOS#(MANUAL) 0.14 x10^3/uL (0.3-2.7); MONOS% (MANUAL) 1 % (2-9); SEG#(MANUAL) 11.42 x10^3/uL (1.8-6.8); SEGS% (MANUAL) 84 % (42-75)
[2020-11-17 06:00] LABS: <PLATELET ESTIMATE> ADEQUATE; <PLT MORPHOLOGY> NORMAL PLT MORPH; PMNS WITH VACUOLES 1+
[2020-11-17] MEDS ORDERED: POTASSIUM CHLORIDE 40 MEQ in SODIUM CHLORIDE 0.9% 500 ML IV ONE (07:30)
[2020-11-17] MEDS ORDERED: SODIUM BICARBONATE 8.4% 150 MEQ in DEXTROSE 5% 1,000 ML IV SCH (07:30)
[2020-11-17] MEDS: APIXABAN 5 MG TABLET PO SCH ×2 (08:16→20:14)
[2020-11-17] MEDS: GABAPENTIN 300 MG CAPSULE PO SCH (08:16)
[2020-11-17] MEDS: ESCITALOPRAM 10MG TABLET PO SCH (08:16)
[2020-11-17 08:19] VITALS: BP 136/75
[2020-11-17] MEDS: INSULIN LISPRO 100 UNITS/ML, PEN SQ-INSULIN SCH ×4 (08:20→20:00)
[2020-11-17] MEDS: AMIODARONE 200 MG TABLET PO SCH ×2 (08:20→20:14)
[2020-11-17] MEDS: CEFTRIAXONE 2 GM in DEXTROSE 5% 50 ML IVPB SCH (14:43)
[2020-11-17 15:50] VITALS: BP 121/70
[2020-11-17] MEDS: LACTATED RINGERS 1,000 ML IV SCH (18:16)
[2020-11-17 19:47] VITALS: BP 122/71
[2020-11-17] MEDS: ATORVASTATIN 80 MG TABLET PO SCH (20:14)
[2020-11-17] MEDS: OXYBUTYNIN CHLORIDE 5 MG TABLET PO SCH (20:14)
[2020-11-17] MEDS: FAMOTIDINE 20 MG/2 ML IV SCH (20:15)
[2020-11-17] MEDS: ACETAMINOPHEN 650 MG/20.3 ML UDC PO PRN (20:15)
[2020-11-18 00:15] VITALS: BP 132/77
[2020-11-18 05:30] LABS: MEAN CORPUSCULAR HEMOGLOBIN 34.4 pg (27.0-34.8); MEAN CORPUSCULAR HGB CONC 34.2 g/dL (32.4-35.8); MEAN PLATELET VOLUME 9.3 fL (7.4-10.4); PLATELET COUNT 97 x10^3/uL (130-400); RED BLOOD COUNT 2.85 x10^6/uL (3.82-5.3); RED CELL DISTRIBUTION WIDTH 14.3 % (9.6-15.2)
[2020-11-18 05:35] LABS: ALBUMIN 1.6 g/dL (3.4-5.0); ANION GAP 4 mmol/L (5-15); CALCIUM 7.2 mg/dL (8.5-10.1); CHLORIDE 112 mmol/L (98-107)
[2020-11-18 05:40] LABS: ALANINE AMINOTRANSFERASE 21 U/L (12-78); ALKALINE PHOSPHATASE 64 U/L (45-117); BILIRUBIN,TOTAL 0.5 mg/dL (0.2-1.0); CREATININE 0.91 mg/dL (0.55-1.02); TOTAL PROTEIN 5.3 g/dL (6.4-8.2)
[2020-11-18 06:20] LABS: BAND#(MANUAL) 1.25 x10^3/uL; BANDS%(MANUAL) 12 % (0-7); EOS% (MANUAL) 1 % (1-7); LYMPH#(MANUAL) 0.31 x10^3/uL (1-3.4); LYMPHS% (MANUAL) 3 % (22-44); MONOS#(MANUAL) 0.52 x10^3/uL (0.3-2.7); MONOS% (MANUAL) 5 % (2-9); SEG#(MANUAL) 8.22 x10^3/uL (1.8-6.8); SEGS% (MANUAL) 79 % (42-75)
[2020-11-18 06:21] LABS: <PLATELET ESTIMATE> DECREASED; <PLT MORPHOLOGY> NORMAL PLT MORPH; PMNS WITH VACUOLES 1+
[2020-11-18] MEDS: INSULIN LISPRO 100 UNITS/ML, PEN SQ-INSULIN SCH ×4 (08:01→20:26)
[2020-11-18] MEDS: MORPHINE SULFATE 4 MG/ML, 1ML IV PRN ×4 (08:43→20:26)
[2020-11-18] MEDS: GABAPENTIN 300 MG CAPSULE PO SCH (08:45)
[2020-11-18] MEDS: METRONIDAZOLE PMX 500MG/100ML 100 ML IV SCH ×3 (08:45→23:05)
[2020-11-18] MEDS: APIXABAN 5 MG TABLET PO SCH ×2 (08:46→20:26)
[2020-11-18 08:48] VITALS: BP 156/80
[2020-11-18] MEDS: LACTATED RINGERS 1,000 ML IV SCH ×3 (08:49→23:08)
[2020-11-18] MEDS: ESCITALOPRAM 10MG TABLET PO SCH (08:49)
[2020-11-18] MEDS: AMIODARONE 200 MG TABLET PO SCH ×2 (08:49→20:26)
[2020-11-18 12:29] VITALS: BP 144/80
[2020-11-18] MEDS: CEFTRIAXONE 2 GM in DEXTROSE 5% 50 ML IVPB SCH (14:01)
[2020-11-18 20:13] VITALS: BP 131/79
[2020-11-18] MEDS: FAMOTIDINE 20 MG/2 ML IV SCH (20:25)
[2020-11-18] MEDS: OXYBUTYNIN CHLORIDE 5 MG TABLET PO SCH (20:26)
[2020-11-18] MEDS: ATORVASTATIN 80 MG TABLET PO SCH (20:26)
[2020-11-19 01:16] VITALS: BP 138/76
[2020-11-19 04:52] LABS: BASOPHILS % (AUTO) 0 % (0-1); EOSINOPHILS % (AUTO) 2 % (1-7); LYMPHOCYTES % (AUTO) 7 % (22-44); MEAN CORPUSCULAR HEMOGLOBIN 34.4 pg (27.0-34.8); MEAN CORPUSCULAR HGB CONC 34.5 g/dL (32.4-35.8); MEAN PLATELET VOLUME 8.1 fL (7.4-10.4); MONOCYTES % (AUTO) 8 % (2-9); NEUTROPHILS % (AUTO) 83 % (42-75); PLATELET COUNT 114 x10^3/uL (130-400); RED BLOOD COUNT 2.92 x10^6/uL (3.82-5.3); RED CELL DISTRIBUTION WIDTH 14.1 % (9.6-15.2)
[2020-11-19] MEDS: METRONIDAZOLE PMX 500MG/100ML 100 ML IV SCH ×3 (06:43→23:39)
[2020-11-19 06:52] VITALS: BP 154/75
[2020-11-19] MEDS: INSULIN LISPRO 100 UNITS/ML, PEN SQ-INSULIN SCH ×4 (07:30→20:42)
[2020-11-19] MEDS: GABAPENTIN 300 MG CAPSULE PO SCH (08:15)
[2020-11-19] MEDS: AMIODARONE 200 MG TABLET PO SCH ×2 (08:15→20:41)
[2020-11-19] MEDS: ESCITALOPRAM 10MG TABLET PO SCH (08:15)
[2020-11-19] MEDS: APIXABAN 5 MG TABLET PO SCH ×2 (08:15→20:41)
[2020-11-19 12:17] VITALS: BP 173/84
[2020-11-19] MEDS: CEFTRIAXONE 2 GM in DEXTROSE 5% 50 ML IVPB SCH (14:39)
[2020-11-19 19:44] VITALS: BP 149/74
[2020-11-19] MEDS: ATORVASTATIN 80 MG TABLET PO SCH (20:40)
[2020-11-20] MEDS: ACETAMINOPHEN 650 MG/20.3 ML UDC PO PRN ×2 (00:41→10:22)
[2020-11-20 02:10] VITALS: BP 158/80
[2020-11-20] MEDS: INSULIN LISPRO 100 UNITS/ML, PEN SQ-INSULIN SCH ×2 (07:00→11:00)
[2020-11-20 07:20] VITALS: BP 153/84
[2020-11-20] MEDS: METRONIDAZOLE PMX 500MG/100ML 100 ML IV SCH ×2 (08:10→16:07)
[2020-11-20] MEDS: AMIODARONE 200 MG TABLET PO SCH ×2 (10:22→20:59)
[2020-11-20] MEDS: GABAPENTIN 300 MG CAPSULE PO SCH (10:22)
[2020-11-20] MEDS: APIXABAN 5 MG TABLET PO SCH ×2 (10:22→20:59)
[2020-11-20] MEDS: ESCITALOPRAM 10MG TABLET PO SCH (10:22)
[2020-11-20] MEDS: CEFTRIAXONE 2 GM in DEXTROSE 5% 50 ML IVPB SCH (13:45)
[2020-11-20 14:22] VITALS: BP 134/76
[2020-11-20 20:00] VITALS: BP 156/88
[2020-11-20] MEDS: ATORVASTATIN 80 MG TABLET PO SCH (20:59)
[2020-11-20] MEDS: LISINOPRIL 20 MG TABLET PO SCH (20:59)
[2020-11-20 21:01] VITALS: BP 161/76
[2020-11-20] MEDS: ACETAMINOPHEN 325 MG TABLET PO PRN (23:17)
[2020-11-21] MEDS: METRONIDAZOLE PMX 500MG/100ML 100 ML IV SCH ×3 (00:55→16:01)
[2020-11-21 01:05] VITALS: BP 134/76
[2020-11-21 07:05] VITALS: BP 144/68
[2020-11-21] MEDS: APIXABAN 5 MG TABLET PO SCH ×2 (09:02→21:14)
[2020-11-21] MEDS: GABAPENTIN 300 MG CAPSULE PO SCH (09:02)
[2020-11-21] MEDS: ESCITALOPRAM 10MG TABLET PO SCH (09:03)
[2020-11-21] MEDS: LISINOPRIL 20 MG TABLET PO SCH ×2 (09:03→21:15)
[2020-11-21] MEDS: AMIODARONE 200 MG TABLET PO SCH ×2 (09:03→21:14)
[2020-11-21 13:19] LABS: BASOPHILS % (AUTO) 1 % (0-1); EOSINOPHILS % (AUTO) 1 % (1-7); LYMPHOCYTES % (AUTO) 8 % (22-44); MEAN CORPUSCULAR HEMOGLOBIN 33.5 pg (27.0-34.8); MEAN CORPUSCULAR HGB CONC 34.7 g/dL (32.4-35.8); MEAN PLATELET VOLUME 8.8 fL (7.4-10.4); MONOCYTES % (AUTO) 10 % (2-9); NEUTROPHILS % (AUTO) 80 % (42-75); PLATELET COUNT 143 x10^3/uL (130-400); RED BLOOD COUNT 3.79 x10^6/uL (3.82-5.3); RED CELL DISTRIBUTION WIDTH 13.9 % (9.6-15.2)
[2020-11-21 13:25] LABS: ALANINE AMINOTRANSFERASE 21 U/L (12-78); ANION GAP 10 mmol/L (5-15); CALCIUM 7.7 mg/dL (8.5-10.1); CHLORIDE 106 mmol/L (98-107); CREATININE 0.86 mg/dL (0.55-1.02)
[2020-11-21 13:28] LABS: ALKALINE PHOSPHATASE 76 U/L (45-117); BILIRUBIN,TOTAL 0.5 mg/dL (0.2-1.0); TOTAL PROTEIN 6.6 g/dL (6.4-8.2)
[2020-11-21 14:03] VITALS: BP 121/74
[2020-11-21] MEDS: CEFTRIAXONE 2 GM in DEXTROSE 5% 50 ML IVPB SCH (14:18)
[2020-11-21] MEDS ORDERED: POTASSIUM CHLORIDE 40 MEQ in SODIUM CHLORIDE 0.9% 500 ML IV ONE (15:30)
[2020-11-21] MEDS: POTASSIUM CHLORIDE 20 MEQ TAB.ER.PRT PO SCH ×2 (16:09→21:14)
[2020-11-21 19:00] VITALS: BP 132/81
[2020-11-21] MEDS: ACETAMINOPHEN 325 MG TABLET PO PRN (21:14)
[2020-11-21] MEDS: ATORVASTATIN 80 MG TABLET PO SCH (21:14)
[2020-11-22 00:45] VITALS: BP 116/74
[2020-11-22] MEDS: METRONIDAZOLE PMX 500MG/100ML 100 ML IV SCH ×3 (01:26→16:39)
[2020-11-22] MEDS: ACETAMINOPHEN 325 MG TABLET PO PRN (04:31)
[2020-11-22 06:09] LABS: BASOPHILS % (AUTO) 1 % (0-1); EOSINOPHILS % (AUTO) 2 % (1-7); LYMPHOCYTES % (AUTO) 8 % (22-44); MEAN CORPUSCULAR HEMOGLOBIN 34.2 pg (27.0-34.8); MEAN CORPUSCULAR HGB CONC 34.8 g/dL (32.4-35.8); MEAN PLATELET VOLUME 8.8 fL (7.4-10.4); MONOCYTES % (AUTO) 10 % (2-9); NEUTROPHILS % (AUTO) 80 % (42-75); PLATELET COUNT 142 x10^3/uL (130-400); RED BLOOD COUNT 3.14 x10^6/uL (3.82-5.3); RED CELL DISTRIBUTION WIDTH 14.2 % (9.6-15.2)
[2020-11-22 06:13] LABS: ALANINE AMINOTRANSFERASE 18 U/L (12-78); ALBUMIN 1.6 g/dL (3.4-5.0); ANION GAP 5 mmol/L (5-15); CALCIUM 7.1 mg/dL (8.5-10.1); CHLORIDE 112 mmol/L (98-107); CREATININE 0.75 mg/dL (0.55-1.02)
[2020-11-22 06:16] LABS: ALKALINE PHOSPHATASE 63 U/L (45-117); BILIRUBIN,TOTAL 0.4 mg/dL (0.2-1.0); TOTAL PROTEIN 5.4 g/dL (6.4-8.2)
[2020-11-22 07:51] VITALS: BP 126/75
[2020-11-22] MEDS: ESCITALOPRAM 10MG TABLET PO SCH (10:02)
[2020-11-22] MEDS: APIXABAN 5 MG TABLET PO SCH ×2 (10:02→20:28)
[2020-11-22] MEDS: AMIODARONE 200 MG TABLET PO SCH ×2 (10:02→20:29)
[2020-11-22] MEDS: LISINOPRIL 20 MG TABLET PO SCH ×2 (10:02→20:29)
[2020-11-22] MEDS: GABAPENTIN 300 MG CAPSULE PO SCH (10:02)
[2020-11-22 14:19] VITALS: BP 139/88
[2020-11-22] MEDS: CEFTRIAXONE 2 GM in DEXTROSE 5% 50 ML IVPB SCH (14:33)
[2020-11-22 19:19] VITALS: BP 130/68
[2020-11-22] MEDS: ATORVASTATIN 80 MG TABLET PO SCH (20:29)
[2020-11-23 00:18] VITALS: BP 140/69
[2020-11-23] MEDS: METRONIDAZOLE PMX 500MG/100ML 100 ML IV SCH ×2 (00:27→07:55)
[2020-11-23] MEDS: ESCITALOPRAM 10MG TABLET PO SCH (07:53)
[2020-11-23] MEDS: AMIODARONE 200 MG TABLET PO SCH (07:53)
[2020-11-23] MEDS: LISINOPRIL 20 MG TABLET PO SCH (07:53)
[2020-11-23] MEDS: APIXABAN 5 MG TABLET PO SCH (07:53)
[2020-11-23] MEDS: GABAPENTIN 300 MG CAPSULE PO SCH (07:53)
[2020-11-23 07:56] VITALS: BP 124/68
[2020-11-23] MEDS ORDERED: CEFD300C37 PO (09:21)
[2020-11-23] MEDS ORDERED: METR500T PO (09:21)
[2020-11-23] MEDS: ACETAMINOPHEN 325 MG TABLET PO PRN (10:05)
== END 2020-11-23 13:16 | disposition home health service (06) | DRG 871 ==
LOC: ED 18:45 → EDIP 11-16 00:03 → 4EST 11-16 11:52 → 4WST 11-22 14:50
PROVIDERS: ADMIT Internal Medicine; ATTEND Family Medicine
PROC: 0T9B70Z Drainage of Bladder with Drainage Device, Via Natural or Artificial Opening (ICD-10-PCS; principal; 2020-11-15)
PROC: 05HY33Z Insertion of Infusion Device into Upper Vein, Percutaneous Approach (ICD-10-PCS; 2020-11-15)
PROC: B543ZZA Ultrasonography of Right Jugular Veins, Guidance (ICD-10-PCS; 2020-11-15)
DX: A41.9 Sepsis, unspecified organism (principal); R65.21 Severe sepsis with septic shock; G92 Toxic encephalopathy; N17.9 Acute kidney failure, unspecified; I50.32 Chronic diastolic (congestive) heart failure; I13.0 Hypertensive heart and chronic kidney disease with heart failure and stage 1 through stage 4 chronic kidney disease, or unspecified chronic kidney disease; K51.50 Left sided colitis without complications; E78.5 Hyperlipidemia, unspecified; E86.0 Dehydration; F32.9 Major depressive disorder, single episode, unspecified; I48.0 Paroxysmal atrial fibrillation; M81.0 Age-related osteoporosis without current pathological fracture; N18.30 Chronic kidney disease, stage 3 unspecified; M19.90 Unspecified osteoarthritis, unspecified site; R73.9 Hyperglycemia, unspecified; D75.89 Other specified diseases of blood and blood-forming organs; R74.01 Elevation of levels of liver transaminase levels; Z72.89 Other problems related to lifestyle; Z79.01 Long term (current) use of anticoagulants
CPT/HCPCS: 36415; 36600; 71045; 74176; 80048; 80053; 81001; 82272; 82607; 82803; 82962; 83036; 83605; 83690; 83735; 83880; 84145; 84484; 85014; 85018; 85025; 85610; 85651; 85730; 86850; 86900; 87040; 87046; 87076; 87086; 87252; 87324; 87427; 89055; 93005; 96360; 99285; G0378; J0696; J2405; J2543; J3480; J7070; J2270; J7030; J7040; J7050; J7120